=== PATIENT | male | born 1965 | race Caucasian/White ===

== ENCOUNTER 2017-09-18 18:37 | Emergency (ER) | payer OTHER ==
[~2017-09-18] VITALS: Ht 165.1 cm; Wt 84.1 kg
[~2017-09-18 18:37] MED LIST: FLEXERIL10 MG PO; IBUPROFEN800 MG PO; NAPROSYN500 MG PO; NOHOMEMEDS; PERCOCET 5/31 TABLET PO; ULTRAM50 MG PO; VALIUM5 MG PO; VICODIN 5-3001 EACH PO
[2017-09-18] MEDS ORDERED: NORCO 5/3251 TABLET PO (20:02)
[2017-09-18] MEDS ORDERED: FLEXERIL10 MG PO (20:02)
[2017-09-18] MEDS ORDERED: MOTRIN600 MG PO (20:02)
[2017-09-18 20:13] VITALS: BP 143/91
== END 2017-09-18 20:21 | disposition home or self-care (01) ==
LOC: EME 18:37
DX: S39.012A Strain of muscle, fascia and tendon of lower back, initial encounter (principal); W18.30XA Fall on same level, unspecified, initial encounter; X50.1XXA Overexertion from prolonged static or awkward postures, initial encounter; Y93.01 Activity, walking, marching and hiking
CPT/HCPCS: 72100; 99281; 99284